=== PATIENT | male | born 1960 | race Caucasian/White ===

== ENCOUNTER 2017-04-29 12:20 | Inpatient (IN) | payer OTHER ==
[~2017-04-29] VITALS: Ht 177.8 cm; Wt 94.2 kg
[2017-04-29 17:27] LABS: EOSINOPHIL (%) 0 % (0-5); HEMATOCRIT 44.7 % (38.0-50.0); IMMATURE GRANULOCYTE (%) 0.4 % (0.0-0.7); INSTRUMENT ABS NEUTROPHIL CT 9.4 K/uL; LYMPHOCYTE COUNT 0.6 K/uL (1.0-2.8); MCH 27.4 PG (29.0-34.0); MCHC 33.6 G/DL (30.0-36.0); MCV 81.7 FL (86-99); MEAN PLAT.VOLUME 9.3 uM^3 (9.0-12.4); MONOCYTE COUNT 0.8 K/uL (0-0.8); NEUTROPHIL (%) 86.9 % (45-76); NEUTROPHIL COUNT 9.4 K/uL (1.8-6.4); PLATELET COUNT 181 K/uL (156-360); RBC DIS.WIDTH-CV 13.3 % (11.8-14.6); RBC DIS.WIDTH-SD 39.2 % (39-53); RED BLOOD COUNT 5.47 M/uL (4.00-5.50); WHITE BLOOD COUNT 10.8 K/uL (4.1-10.2)
[2017-04-29 17:34] LABS: INTER. NORMALIZED RATIO 1.1; PROTHROMBIN TIME 12.3 SEC (10.2-12.9)
[2017-04-29 17:37] LABS: CHLORIDE 110 mEq/L (99-109); POTASSIUM 4.2 mEq/L (3.7-5.4); SODIUM 144 mEq/L (136-147)
[2017-04-29 17:38] LABS: GLUCOSE 121 mg/dL (70-99)
[2017-04-29 17:40] LABS: ANION GAP 11 MEQ/L (2-14)
[2017-04-29 17:42] LABS: GFR ESTIMATE (CALCULATED) > 59 mL/min/
[2017-04-29 17:43] LABS: UREA NITROGEN (BUN) 25 mg/dL (9-23)
[2017-04-29 19:50] VITALS: BP 123/65
[2017-04-30 00:15] VITALS: BP 120/69
[2017-04-30 04:36] VITALS: BP 120/61
[2017-04-30 06:42] LABS: ALKALINE PHOSPHATASE 46 IU/L (3-129); ANION GAP 7 MEQ/L (2-14); CHLORIDE 109 MEQ/L (99-109); GFR ESTIMATE (CALCULATED) > 59 mL/min/; GLUCOSE 149 mg/dL (70-99); POTASSIUM 3.6 MEQ/L (3.7-5.4); SAMPLE HEMOLYSIS CHECK 0; SAMPLE ICTERIC CHECK 0; SAMPLE LIPEMIA CHECK 0; SODIUM 142 MEQ/L (136-147); TOTAL BILIRUBIN 0.5 MG/DL (0.0-1.0); UREA NITROGEN (BUN) 22 mg/dL (9-23)
[2017-04-30 06:43] LABS: HEMATOCRIT 38.7 % (38.0-50.0); MCH 27.1 PG (29.0-34.0); MCHC 33.3 G/DL (30.0-36.0); MCV 81.3 FL (86-99); PLATELET COUNT 176 K/uL (156-360); RBC DIS.WIDTH-CV 13.3 % (11.8-14.6); RBC DIS.WIDTH-SD 39.5 % (39-53); RED BLOOD COUNT 4.76 M/uL (4.00-5.50); WHITE BLOOD COUNT 7.2 K/uL (4.1-10.2)
[2017-04-30 07:39] VITALS: BP 115/70
[2017-04-30 11:32] VITALS: BP 142/76
[2017-04-30] MEDS ORDERED: PERCOCET 5/31 TABLET PO (13:18)
== END 2017-04-30 15:37 | disposition home or self-care (01) | DRG 185 ==
LOC: EME 12:20 → 3EAST 17:42 → EDOF 17:42 → ENRESERV 17:45 → 3EAST 20:07
PROVIDERS: Emergency Medicine; Surgery
DX: S22.41XA Multiple fractures of ribs, right side, initial encounter for closed fracture (principal); S42.101A Fracture of unspecified part of scapula, right shoulder, initial encounter for closed fracture; V58.4XXA Person boarding or alighting a pick-up truck or van injured in noncollision transport accident, initial encounter
CPT/HCPCS: 70450; 71020; 71101; 71260; 72125; 73030; 80048; 80053; 85025; 85027; 85610; 99281; 99285; J1170; J1644; J2270; J7030; J7120